=== PATIENT | male | born 1955 | race Caucasian/White ===

== ENCOUNTER 2019-09-09 04:48 | Inpatient (IN) | payer SELFPAY ==
[~2019-09-09] VITALS: Ht 190.5 cm; Wt 77.5 kg
[2019-09-09 05:17] LABS: BASOPHILS % (AUTO) 0.3 % (0.0-5.0); EOSINOPHILS % (AUTO) 1.8 % (0.0-8.0); HEMATOCRIT 37.8 % (42-54); MEAN CORPUSCULAR HGB CONC 36.5 g/dL (32.0-36.0); MEAN CORPUSCULAR VOLUME 87.7 fL (79-99); NEUTROPHILS % (AUTO) 77.4 % (40.0-77.0); PLATELET COUNT (AUTO) 487 K/uL (130-400); RED BLOOD CELL COUNT(AUTO) 4.31 MIL/uL (4.50-6.20); RED CELL DISTRIBUTION WIDTH 12.3 % (11.0-15.5); WHITE BLOOD COUNT (AUTO) 15.8 K/uL (4.8-10.8)
[2019-09-09 05:25] LABS: INR 0.92 (0.85-1.15); PARTIAL THROMBOPLASTIN TIME 31.2 SEC (26.3-35.5)
[2019-09-09 05:27] LABS: APPEARANCE,URINE Clear (CLEAR); BILIRUBIN,URINE Negative (NEGATIVE); COLOR,URINE Yellow (YELLOW); GLUCOSE, URINE (UA) Negative (NEGATIVE); KETONES,URINE Negative (NEGATIVE); LEUKOCYTE ESTERASE ,URINE Trace (NEGATIVE); NITRATE,URINE Negative (NEGATIVE); OCCULT BLOOD,URINE Moderate (NEGATIVE); PROTEIN,URINE 300 mg/dL (NEGATIVE)
[2019-09-09 05:36] LABS: BACTERIA,URINE None Seen /HPF (None Seen); SQUAMOUS EPITHELIAL CELL,UR Rare /HPF (0-2); WBC,URINE 0-1 /HPF (0-1)
[2019-09-09 05:49] LABS: ALBUMIN 2.6 g/dL (3.5-5.0); BILIRUBIN,TOTAL 0.4 mg/dL (0.2-1.0); CREATININE 1.2 mg/dL (0.5-1.5); POTASSIUM 4.3 mmol/L (3.5-5.1); TOTAL PROTEIN, SERUM 7.1 g/dL (6.0-8.3)
[2019-09-09] MEDS ORDERED: ORPHENADRINE CITRATE 30 MG/ML ML ONE (06:00)
[2019-09-09] MEDS ORDERED: IOHEXOL-350 75 ML VIAL IV ONE (06:04)
[2019-09-09] MEDS ORDERED: ONDANSETRON HCL 4 MG/2 ML VIAL ONE (06:58)
[2019-09-09] MEDS ORDERED: MORPHINE SULFATE 2 MG/ML 1ML SYG ONE (06:59)
[2019-09-09] MEDS ORDERED: FAMOTIDINE/PF 20 MG/2 ML VIAL IV ONE (07:52)
[2019-09-09] MEDS ORDERED: NITROGLYCERIN 0.4 MG SL TAB SL PRN (08:30)
[2019-09-09] MEDS ORDERED: ONDANSETRON HCL 4 MG/2 ML VIAL IV PRN (08:30)
[2019-09-09] MEDS: CEFTRIAXONE SODIUM 1 GM IV SCH ×2 (08:30→20:19)
[2019-09-09] MEDS ORDERED: ACETAMINOPHEN 325 MG TAB PO PRN (08:30)
[2019-09-09] MEDS ORDERED: HYDROCODONE/ACETAMINOPHEN 5/325 MG TAB PO PRN (08:30)
[2019-09-09] MEDS: DEXTROSE 5 % AND 0.9 % NACL 1,000 ML IV SCH ×2 (08:45→20:19)
[2019-09-09] MEDS: FAMOTIDINE/PF 20 MG/2 ML VIAL IV SCH ×2 (09:00→20:19)
[2019-09-09] MEDS: LIDOCAINE 5% TOPICAL PATCH TP SCH (09:00)
[2019-09-09] MEDS ORDERED: HYDRALAZINE HCL 20 MG/ML VIAL ONE (09:38)
[2019-09-09] MEDS ORDERED: LIDOCAINE 5% TOPICAL PATCH TP ONE (10:16)
[2019-09-09] MEDS ORDERED: CEFTRIAXONE SODIUM 1 GM ONE (10:16)
[2019-09-09] MEDS ORDERED: SODIUM CHLORIDE 0.9% 1000ML 1,000 ML IV ONE (10:17)
[2019-09-09 11:27] VITALS: BP 147/99
[2019-09-09 12:29] LABS: CREATININE,URINE RANDOM 84 mg/dL (30-135); SODIUM,URINE RANDOM < 15 mmol/l (40-220)
[2019-09-09 16:00] VITALS: BP 146/80
[2019-09-09 20:00] VITALS: BP 153/83
[2019-09-09 23:59] VITALS: BP 194/88
[2019-09-10] VITALS (7 sets, daily range): BP systolic 153–189; BP diastolic 78–126
[2019-09-10] MEDS: MORPHINE SULFATE 4 MG/1ML SYG IV PRN ×2 (04:12→09:15)
[2019-09-10] MEDS: DEXTROSE 5 % AND 0.9 % NACL 1,000 ML IV SCH (04:13)
[2019-09-10 05:03] LABS: BASOPHILS % (AUTO) 0.5 % (0.0-5.0); EOSINOPHILS % (AUTO) 1.8 % (0.0-8.0); HEMATOCRIT 32.4 % (42-54); LYMPHOCYTES % (AUTO) 24.9 % (21.0-51.0); MEAN CORPUSCULAR HEMOGLOBIN 31.3 pg (27.0-33.0); MEAN CORPUSCULAR HGB CONC 35.5 g/dL (32.0-36.0); MEAN CORPUSCULAR VOLUME 88.3 fL (79-99); MONOCYTES % (AUTO) 12.7 % (3.0-13.0); NEUTROPHILS % (AUTO) 59.8 % (40.0-77.0); PLATELET COUNT (AUTO) 470 K/uL (130-400); RED BLOOD CELL COUNT(AUTO) 3.67 MIL/uL (4.50-6.20); RED CELL DISTRIBUTION WIDTH 12.5 % (11.0-15.5); WHITE BLOOD COUNT (AUTO) 8.8 K/uL (4.8-10.8)
[2019-09-10 05:39] LABS: ALBUMIN 2.3 g/dL (3.5-5.0); BILIRUBIN,TOTAL 0.2 mg/dL (0.2-1.0); CREATININE 1.3 mg/dL (0.5-1.5); CRP QUANTITATIVE 145.3 mg/L (0.00-9.0); TOTAL PROTEIN, SERUM 6.3 g/dL (6.0-8.3)
[2019-09-10] MEDS: NICOTINE 14 MG/ 24 HR PATCH TD SCH (09:01)
[2019-09-10] MEDS: FAMOTIDINE/PF 20 MG/2 ML VIAL IV SCH ×2 (09:01→21:29)
[2019-09-10] MEDS: LIDOCAINE 5% TOPICAL PATCH TP SCH (09:01)
[2019-09-10] MEDS: CEFTRIAXONE SODIUM 1 GM IV SCH ×2 (09:01→21:29)
[2019-09-10] MEDS: HYDRALAZINE HCL 20 MG/ML VIAL IV PRN ×2 (09:15→21:29)
[2019-09-10] MEDS: DEXTROSE 5 %-0.45 % NACL 500 ML IV SCH ×2 (10:00→16:40)
[2019-09-10] MEDS ORDERED: SIMV40TA59 PO (16:29)
[2019-09-10] MEDS ORDERED: LISI-613 PO (16:29)
[2019-09-10] MEDS ORDERED: ALBU8.5H8 IH (16:29)
[2019-09-10] MEDS ORDERED: CALCITONIN 3.7 ML AEROSOL NS SCH (16:45)
--- NOTE | 2019-09-10 18:41 | NUR ---
ATTEMPTED X 2 TO DO INITIAL ASSESSMENT PATIETN IN RESTROOM X1, AND DR. MORALES AT BEDSIDE AT THIS TIME, UNABLE TO DO INTERVIEW. PATIENT OBSERVED TO BE UP AND ABOUT IN ROOM, NO MOBILITY DEFICITS, INDPENDENT; HERE FOR PANCRETITIS- ABD APINA DN + CT SCAN WITHOUT ELEVATED LIPASE. NPO AT THIS TIME, DCP PLAN IS PRESUMED TO BE HOME . WILL LEAVE NTOE FOR CM TO FOLOW UP IN AM Addendum: 09/10/19 at 1843 by LORRIE METZGER RN CM Amended: Links added.
[2019-09-10] MEDS ORDERED: CLONIDINE HCL 0.1 MG TABLET PO ONE (23:00)
[2019-09-10] MEDS ORDERED: CLONIDINE HCL 0.1 MG TABLET ONE (23:02)
--- NOTE | 2019-09-10 23:35 | NUR ---
SPOKE WITH MAKENZIE DUMONT REGARDING ELEVATED BP. NEW ORDERS RECEIVED TO ADMINISTER CLONIDINE 0.1 MG PO x 1 DOSE. WILL CONT TO MONITOR PATIENT.
[2019-09-11] VITALS (8 sets, daily range): BP systolic 146–188; BP diastolic 85–117
[2019-09-11] MEDS: HYDRALAZINE HCL 20 MG/ML VIAL IV PRN ×3 (03:12→22:07)
[2019-09-11] MEDS ORDERED: LISINOPRIL 20 MG TABLET ONE (03:36)
[2019-09-11] MEDS: LISINOPRIL 20 MG TABLET PO SCH ×2 (03:45→10:04)
--- NOTE | 2019-09-11 03:54 | NUR ---
SPOKE WITH MAKENZIE DUMONT, UPDATED BP CONTINUES ELEVATED. NEW ORDERS RECEIVED. WILL RESTART HOME BP MED OF LISINOPRIL 20 MG PO. PATIENT REPORTS LIGHT HEADACHE. NO CP, NO SOB OR OTHER ACUTE DISTRESS NOTED. WILL CONT TO MONITOR CLOSELY.
[2019-09-11 05:14] LABS: MEAN CORPUSCULAR VOLUME 88.5 fL (79-99); PLATELET COUNT (AUTO) 478 K/uL (130-400); RED BLOOD CELL COUNT(AUTO) 4.07 MIL/uL (4.50-6.20); RED CELL DISTRIBUTION WIDTH 12.7 % (11.0-15.5); WHITE BLOOD COUNT (AUTO) 10.5 K/uL (4.8-10.8)
[2019-09-11 05:33] LABS: ALBUMIN 2.7 g/dL (3.5-5.0); BILIRUBIN,TOTAL 0.2 mg/dL (0.2-1.0); CREATININE 1.1 mg/dL (0.5-1.5); CRP QUANTITATIVE 83.7 mg/L (0.00-9.0); POTASSIUM 3.9 mmol/L (3.5-5.1); TOTAL PROTEIN, SERUM 7.1 g/dL (6.0-8.3)
[2019-09-11 05:38] LABS: BAND NEUTROPHILS % (MANUAL) 3 % (0-2); EOSINOPHILS % (MANUAL) 1 % (1-6); LYMPHOCYTES % (MANUAL) 10 % (22-44); MAN.DIFF COMMENT-IMPRESSION MANUAL DIFFERENTIAL; MONOCYTES % (MANUAL) 7 % (2-9); PLATELET MORPHOLOGY COMMENT INCREASED; SEGMENTED NEUTROPHILS % 79 % (40-70)
[2019-09-11] MEDS: ALBUTEROL SULFATE 0.083% 2.5 MG/3 ML INH IH SCH ×3 (07:28→21:00)
[2019-09-11] MEDS: LIDOCAINE 5% TOPICAL PATCH TP SCH (09:00)
[2019-09-11] MEDS ORDERED: LISINOPRIL 20 MG TABLET PO SCH (09:00)
[2019-09-11] MEDS: FAMOTIDINE/PF 20 MG/2 ML VIAL IV SCH ×2 (10:03→19:35)
[2019-09-11] MEDS: NICOTINE 14 MG/ 24 HR PATCH TD SCH (10:04)
[2019-09-11] MEDS: CEFTRIAXONE SODIUM 1 GM IV SCH ×2 (10:05→19:35)
[2019-09-11] MEDS: DEXTROSE 5 % AND 0.9 % NACL 1,000 ML IV SCH ×2 (10:06→22:08)
--- NOTE | 2019-09-11 10:21 | NUR ---
INITIAL SW spoke with patient's spouse, Nathalie Castle, . No home services. DME: [facility]. Patient is able to complete ADL's independently and drives as per spouse. No PCP. Pharmacy is [facility] located on [address] in [place]. DCP home. Patient has no insurance or benefits. He is a [place] citizen and has worked. As per spouse, patient will have Medicare effective October 06, 2019. [employer] educated spouse on [employer] $4 medication program and [facility] $5 medication program. Patient is being assisted by [employer] for financial matters. Addendum: 09/11/19 at 1024 by MUNIRA NELSON Amended: Links added.
--- NOTE | 2019-09-11 11:34 | NUR ---
RD NOTIFICATION PT ADMITTED FOR ACUTE ON CHRONIC PANCREATITIS, COMPRESSION FRACTURE. PT CURRENTLY NPO WITH ELEVATED LIPASE (6926) AND AMYLASE (826) LAB VALUES. PT REPORTS RELIEF OF ABDOMINAL PAIN, PER MD NOTE. WHEN MEDICALLY FEASIBLE, RECOMMEND CLEAR LIQUID DIET WITH ENSURE CLEAR NUTRITIONAL SUPPLEMENTATION. RD TO CONTINUE TO MONITOR. PLEASE NOTIFY ADDITIONAL NUTRITION CONCERNS ARISE. THANK YOU. Addendum: 09/11/19 at [address] Amended: Links added.
[2019-09-11] MEDS: LABETALOL HCL 5 MG/ML 20ML VIAL IV PRN (13:18)
--- NOTE | 2019-09-11 17:47 | NUR ---
i spoke to dr kumar on the phone and infomed of continued elevated blood pressure; order received to start on labetolol 200mg po bid.
[2019-09-11] MEDS: LABETALOL HCL 200 MG TABLET PO SCH (19:36)
[2019-09-12] VITALS (10 sets, daily range): BP systolic 148–190; BP diastolic 87–119
[2019-09-12 05:32] LABS: BASOPHILS % (AUTO) 0.3 % (0.0-5.0); EOSINOPHILS % (AUTO) 2.5 % (0.0-8.0); HEMATOCRIT 33.3 % (42-54); LYMPHOCYTES % (AUTO) 17.1 % (21.0-51.0); MEAN CORPUSCULAR HGB CONC 34.8 g/dL (32.0-36.0); MONOCYTES % (AUTO) 8.6 % (3.0-13.0); NEUTROPHILS % (AUTO) 71.2 % (40.0-77.0); PLATELET COUNT (AUTO) 499 K/uL (130-400); RED BLOOD CELL COUNT(AUTO) 3.74 MIL/uL (4.50-6.20); RED CELL DISTRIBUTION WIDTH 12.6 % (11.0-15.5); WHITE BLOOD COUNT (AUTO) 8.9 K/uL (4.8-10.8)
[2019-09-12 06:06] LABS: ALBUMIN 2.5 g/dL (3.5-5.0); BILIRUBIN,TOTAL 0.2 mg/dL (0.2-1.0); CREATININE 1.2 mg/dL (0.5-1.5); POTASSIUM 3.8 mmol/L (3.5-5.1); TOTAL PROTEIN, SERUM 6.6 g/dL (6.0-8.3)
[2019-09-12] MEDS: LIDOCAINE 5% TOPICAL PATCH TP SCH (09:00)
[2019-09-12] MEDS: ALBUTEROL SULFATE 0.083% 2.5 MG/3 ML INH IH SCH ×2 (09:00→14:00)
[2019-09-12] MEDS: CEFTRIAXONE SODIUM 1 GM IV SCH ×2 (09:42→19:19)
[2019-09-12] MEDS: LABETALOL HCL 200 MG TABLET PO SCH ×2 (09:46→19:19)
[2019-09-12] MEDS: FAMOTIDINE/PF 20 MG/2 ML VIAL IV SCH ×2 (09:46→19:19)
[2019-09-12] MEDS: NICOTINE 14 MG/ 24 HR PATCH TD SCH (09:47)
[2019-09-12] MEDS: DEXTROSE 5 % AND 0.9 % NACL 1,000 ML IV SCH (12:37)
[2019-09-12] MEDS: HYDRALAZINE HCL 20 MG/ML VIAL IV PRN (15:27)
[2019-09-12] MEDS ORDERED: CHLORDIAZEPOXIDE HCL 25 MG CAP PO ONE (16:30)
[2019-09-12] MEDS ORDERED: CHLORDIAZEPOXIDE HCL 25 MG CAP PO PRN (16:45)
[2019-09-12] MEDS ORDERED: LORAZEPAM 2 MG/ML 1 ML VIAL IVP PRN (16:45)
[2019-09-12] MEDS ORDERED: PHARMACY COMMUNICATION MISC PRN (16:45)
[2019-09-12] MEDS ORDERED: CHLORDIAZEPOXIDE HCL 25 MG CAP ONE (16:45)
[2019-09-12] MEDS: LABETALOL HCL 5 MG/ML 20ML VIAL IV PRN (17:37)
[2019-09-13] VITALS (7 sets, daily range): BP systolic 138–171; BP diastolic 92–108
--- NOTE | 2019-09-13 00:24 | NUR ---
patient refuses to have seizure pads on
--- NOTE | 2019-09-13 01:00 | NUR ---
patient's IV catheter is difficult to flush, and tried to insert another IV catheter but the patient refuses to be "poked again."
[2019-09-13] MEDS: DEXTROSE 5 % AND 0.9 % NACL 1,000 ML IV SCH ×2 (03:38→18:09)
[2019-09-13] MEDS: LABETALOL HCL 200 MG TABLET PO SCH ×2 (03:38→20:07)
[2019-09-13] MEDS: CEFTRIAXONE SODIUM 1 GM IV SCH ×2 (05:49→20:04)
[2019-09-13 05:55] LABS: BASOPHILS % (AUTO) 0.2 % (0.0-5.0); EOSINOPHILS % (AUTO) 3.1 % (0.0-8.0); HEMATOCRIT 31.8 % (42-54); LYMPHOCYTES % (AUTO) 18.7 % (21.0-51.0); MEAN CORPUSCULAR HEMOGLOBIN 31.4 pg (27.0-33.0); MEAN CORPUSCULAR HGB CONC 34.9 g/dL (32.0-36.0); MEAN CORPUSCULAR VOLUME 89.8 fL (79-99); MONOCYTES % (AUTO) 8.1 % (3.0-13.0); NEUTROPHILS % (AUTO) 69.7 % (40.0-77.0); PLATELET COUNT (AUTO) 425 K/uL (130-400); RED BLOOD CELL COUNT(AUTO) 3.54 MIL/uL (4.50-6.20); RED CELL DISTRIBUTION WIDTH 12.7 % (11.0-15.5); WHITE BLOOD COUNT (AUTO) 9.7 K/uL (4.8-10.8)
[2019-09-13 06:09] LABS: CREATININE 1.2 mg/dL (0.5-1.5); POTASSIUM 3.5 mmol/L (3.5-5.1)
[2019-09-13] MEDS: FOLIC ACID 1 MG TABLET PO SCH (09:00)
[2019-09-13] MEDS ORDERED: FOLIC ACID 1 MG TABLET PO SCH (09:00)
[2019-09-13] MEDS: FAMOTIDINE/PF 20 MG/2 ML VIAL IV SCH ×2 (09:29→20:04)
[2019-09-13] MEDS: MULTIVITAMIN TABLET PO SCH (09:29)
[2019-09-13] MEDS: THIAMINE HCL 100 MG TABLET PO SCH (09:30)
[2019-09-13] MEDS: LISINOPRIL 20 MG TABLET PO SCH (09:30)
[2019-09-13] MEDS: LIDOCAINE 5% TOPICAL PATCH TP SCH (09:31)
[2019-09-13] MEDS: NICOTINE 14 MG/ 24 HR PATCH TD SCH (09:31)
[2019-09-13] MEDS ORDERED: PHARMACY COMMUNICATION MISC SCH (10:45)
[2019-09-13] MEDS: CLONAZEPAM 1 MG TABLET PO SCH ×2 (12:00→18:03)
[2019-09-13] MEDS ORDERED: CLONAZEPAM 1 MG TABLET PO SCH (12:00)
[2019-09-13] MEDS ORDERED: AMLODIPINE BESYLATE 5 MG TAB PO SCH (12:45)
[2019-09-13] MEDS: HYDRALAZINE HCL 20 MG/ML VIAL IV PRN (15:02)
[2019-09-13] MEDS ORDERED: SIMVASTATIN 20 MG TABLET PO SCH (21:00)
[2019-09-14 00:02] VITALS: BP 143/99
[2019-09-14] MEDS: HYDRALAZINE HCL 20 MG/ML VIAL IV PRN (00:48)
[2019-09-14 03:54] VITALS: BP 140/87
[2019-09-14 04:23] LABS: CREATININE 1.3 mg/dL (0.5-1.5); MAGNESIUM 1.6 mg/dL (1.80-2.40); POTASSIUM 3.6 mmol/L (3.5-5.1)
[2019-09-14] MEDS: ALBUTEROL SULFATE 0.083% 2.5 MG/3 ML INH IH SCH (06:46)
[2019-09-14] MEDS ORDERED: MAGNESIUM 2GM PREMIX 50ML 50 ML IV SCH (08:00)
[2019-09-14 08:17] VITALS: BP 137/83
[2019-09-14] MEDS: LABETALOL HCL 200 MG TABLET PO SCH (08:49)
[2019-09-14] MEDS: THIAMINE HCL 100 MG TABLET PO SCH (08:49)
[2019-09-14] MEDS: MULTIVITAMIN TABLET PO SCH (08:49)
[2019-09-14] MEDS: LISINOPRIL 20 MG TABLET PO SCH (08:50)
[2019-09-14] MEDS: FOLIC ACID 1 MG TABLET PO SCH (08:50)
[2019-09-14] MEDS: FAMOTIDINE/PF 20 MG/2 ML VIAL IV SCH (08:51)
[2019-09-14] MEDS: CEFTRIAXONE SODIUM 1 GM IV SCH (08:51)
[2019-09-14] MEDS: LIDOCAINE 5% TOPICAL PATCH TP SCH ×2 (08:52→09:00)
[2019-09-14] MEDS: NICOTINE 14 MG/ 24 HR PATCH TD SCH (08:53)
[2019-09-14] MEDS ORDERED: AMLODIPINE BESYLATE 5 MG TAB PO SCH (09:00)
[2019-09-14] MEDS ORDERED: MAGNESIUM OXIDE 400 MG TABLET PO SCH (10:03)
[2019-09-14] MEDS ORDERED: ASPIRIN 81MG TAB.CHEW PO SCH (10:30)
--- NOTE | 2019-09-14 11:25 | NUR ---
PT. LEFT VIA WHEELCHAIR IN PVT CAR, F/U APPT WITH DR. PONCE SCHEDULED, AND PT. IS TO CALL PCP FOR F/U APPT. D/C INSTRUCTIONS GIVEN TO PATIENT AND ALONG WITH RX SCRIPTS. PT. V/S STABLE AND NO COMPLICATIONS UPON D/C
[2019-09-15] MEDS ORDERED: MAGNESIUM OXIDE 400 MG TABLET PO SCH (09:45)
== END 2019-09-14 11:25 | disposition home or self-care (01) | DRG 439 ==
LOC: EDH 04:48 → EDHIP 04:49 → 4AH 11:24 → 3AH 09-11 15:27
PROVIDERS: ADMIT Hospitalist; ATTEND Hospitalist
DX: K85.90 Acute pancreatitis without necrosis or infection, unspecified (principal); M48.56XA Collapsed vertebra, not elsewhere classified, lumbar region, initial encounter for fracture; N39.0 Urinary tract infection, site not specified; E87.1 Hypo-osmolality and hyponatremia; F10.239 Alcohol dependence with withdrawal, unspecified; F13.239 Sedative, hypnotic or anxiolytic dependence with withdrawal, unspecified; N17.9 Acute kidney failure, unspecified; E44.0 Moderate protein-calorie malnutrition; E86.9 Volume depletion, unspecified; R63.1 Polydipsia; K86.1 Other chronic pancreatitis; E78.5 Hyperlipidemia, unspecified; E78.00 Pure hypercholesterolemia, unspecified; F17.210 Nicotine dependence, cigarettes, uncomplicated; I10 Essential (primary) hypertension; I16.0 Hypertensive urgency; Z86.73 Personal history of transient ischemic attack (TIA), and cerebral infarction without residual deficits; Z88.2 Allergy status to sulfonamides; Z68.21 Body mass index [BMI] 21.0-21.9, adult
CPT/HCPCS: 36415; 74177; 76705; 80048; 80053; 81001; 82150; 82436; 82550; 82570; 83605; 83690; 83735; 84145; 84300; 84484; 85025; 85610; 85730; 86140; 87040; 87088; 93005; 94664; A6250; G0378; G0480; J0360; J0696; J2270; J2405; J3490; J7030; J7042; Q9967

== ENCOUNTER → 2019-12-15 | Outpatient (CLI) | payer OTHER ==
[~2019-12-15] MED LIST: ALBU8.5H8 IH; LISI-613 PO; SIMV40TA59 PO
== END | disposition home or self-care (01) ==
LOC: RAH 10:00
PROVIDERS: ATTEND Internal Medicine Gastroenterology
DX: C16.0 Malignant neoplasm of cardia (principal); J43.2 Centrilobular emphysema; M43.8X4 Other specified deforming dorsopathies, thoracic region; M47.814 Spondylosis without myelopathy or radiculopathy, thoracic region; I25.10 Atherosclerotic heart disease of native coronary artery without angina pectoris
CPT/HCPCS: 71250